=== PATIENT | female | born 1950 ===

== ENCOUNTER → 2016-11-09 | Outpatient (CLI) | payer OTHER | END | disposition home or self-care (01) | LOC: C.LABSPEC 17:47 | PROVIDERS: ATTEND Urology | DX: R32 Unspecified urinary incontinence (principal); N39.0 Urinary tract infection, site not specified ==

== ENCOUNTER → 2017-02-19 | Outpatient (CLI) | payer OTHER | END | disposition home or self-care (01) | LOC: C.LABSPEC 17:11 | PROVIDERS: ATTEND Nurse Practitioner Family | DX: N39.41 Urge incontinence (principal) ==

== ENCOUNTER → 2017-06-21 | Outpatient (CLI) | payer OTHER | END | disposition home or self-care (01) | LOC: C.LABSPEC 16:28 | PROVIDERS: ATTEND Nurse Practitioner Family | DX: N39.0 Urinary tract infection, site not specified (principal) ==

== ENCOUNTER → 2017-10-31 | Outpatient (CLI) | payer OTHER | END | disposition home or self-care (01) | LOC: C.LABSPEC 10:38 | PROVIDERS: ATTEND Nurse Practitioner Adult Health | DX: N39.0 Urinary tract infection, site not specified (principal) ==